=== PATIENT | male | born 1935 | race Caucasian/White ===

== ENCOUNTER → 2017-08-27 | Outpatient (CLI) | payer MEDICARE, BC ==
[~2017-08-27] MED LIST: ASPIR 8181 M1 PO; ASPIR-TRIN325 M1 PO; CELEBREX200 MG PO; ENDOCET 5-3251 EACH PO; Ecotrin PO; FEOSOL325 MG PO; HUMALOG100 UNIT/2 SC; LANTUS 3 M100 UNITS/ SC; LIPITOR10 MG PO; LIPITOR5 MG PO; Lipitor PO; NOVOLOG PE100 UNITS/ SC; SENOKOT S,PE1 TABLET PO; SINEMET CR 25-1 EACH PO; Vicodin,Norco 5/325 PO
== END | disposition home or self-care (01) ==
LOC: CDC 11:51
DX: Z01.810 Encounter for preprocedural cardiovascular examination (principal); N40.1 Benign prostatic hyperplasia with lower urinary tract symptoms; N13.8 Other obstructive and reflux uropathy
CPT/HCPCS: 93000

== ENCOUNTER 2018-01-26 20:57 | Observation (INO) | payer OTHER, BC ==
[~2018-01-26] VITALS: Ht 170.2 cm; Wt 64.5 kg
[~2018-01-26 20:57] MED LIST changes: -LIPITOR5 MG PO
[2018-01-26 21:59] LABS: HEMATOCRIT 37.2 % (38.0-50.0); HEMOGLOBIN 13.2 G/DL (12.5-16.6); MCH 32.7 PG (29.0-34.0); MCHC 35.5 G/DL (30.0-36.0); MCV 92.1 FL (86-99); PLATELET COUNT 182 K/uL (156-360); RBC DIS.WIDTH-CV 12.6 % (11.8-14.6); RBC DIS.WIDTH-SD 42.4 % (39-53); RED BLOOD COUNT 4.04 M/uL (4.00-5.50); WHITE BLOOD COUNT 4.1 K/uL (4.1-10.2)
[2018-01-26 22:08] LABS: CHLORIDE 101 mEq/L (99-109); POTASSIUM 4.7 mEq/L (3.7-5.4); SODIUM 136 mEq/L (136-147)
[2018-01-26 22:09] LABS: GLUCOSE 292 mg/dL (70-99)
[2018-01-26 22:13] LABS: GFR ESTIMATE (CALCULATED) > 59 mL/min/ (58.99-99999)
[2018-01-26 22:14] LABS: UREA NITROGEN (BUN) 20 mg/dL (9-23)
[2018-01-26 22:21] LABS: TROP-I INTERPRETATION NEGATIVE; TROPONIN-I < 0.01 ng/mL (0.0-0.30)
[2018-01-27 00:25] LABS: ALBUMIN 3.9 g/dL (3.2-4.8)
[2018-01-27 00:28] LABS: TOTAL PROTEIN 6.2 g/dL (6.4-8.3)
[2018-01-27 00:30] LABS: TOTAL BILIRUBIN 0.6 mg/dL (0.0-1.0)
[2018-01-27 00:31] LABS: ALKALINE PHOSPHATASE 75 IU/L (3-129)
[2018-01-27 00:33] LABS: AST (GOT) 21 IU/L (2-34)
[2018-01-27 00:34] LABS: ALT (GPT) 16 IU/L (3-49); CREATINE KINASE 145 IU/L (1-294); DIRECT BILIRUBIN 0.3 mg/dL (0.0-0.3)
[2018-01-27 00:45] VITALS: BP 133/72
[2018-01-27] MEDS ORDERED: SINEMET 25-1001 EACH PO (01:33)
[2018-01-27] MEDS ORDERED: NEURONTIN100 MG PO (01:35)
[2018-01-27] MEDS ORDERED: ONE DAILY MULT1 EACH PO (01:36)
[2018-01-27] MEDS ORDERED: MAGNESIUM400 M1 PO (01:37)
[2018-01-27] MEDS ORDERED: RABANO YOD50 MG/15 M PO (01:37)
[2018-01-27] MEDS ORDERED: TOUJEO SOL300 UNIT/1 SC (01:38)
[2018-01-27 04:20] VITALS: BP 120/95
[2018-01-27 06:23] LABS: TROP-I INTERPRETATION NEGATIVE; TROPONIN-I < 0.01 ng/mL (0.0-0.30)
[2018-01-27 06:36] LABS: CHLORIDE 105 MEQ/L (99-109); CREATININE 0.8 MG/DL (0.6-1.3); GFR ESTIMATE (CALCULATED) > 59 mL/min/ (58.99-99999); GLUCOSE 200 mg/dL (70-99); SODIUM 142 MEQ/L (136-147); UREA NITROGEN (BUN) 14 mg/dL (9-23)
[2018-01-27 08:32] VITALS: BP 145/73
[2018-01-27 11:03] LABS: TROP-I INTERPRETATION NEGATIVE; TROPONIN-I < 0.01 ng/mL (0.0-0.30)
[2018-01-27 11:28] VITALS: BP 101/59
== END 2018-01-27 14:00 | disposition home or self-care (01) ==
LOC: EME 20:57 → EDOF 23:44 → ENRESERV 23:49 → 4SOUTH 01-27 00:28
PROVIDERS: Emergency Medicine; Hospitalist
DX: R07.89 Other chest pain (principal); R25.2 Cramp and spasm; M79.1 Myalgia; R00.1 Bradycardia, unspecified; E11.65 Type 2 diabetes mellitus with hyperglycemia; G20 Parkinson's disease; E11.42 Type 2 diabetes mellitus with diabetic polyneuropathy; E78.5 Hyperlipidemia, unspecified; R53.1 Weakness; N40.0 Benign prostatic hyperplasia without lower urinary tract symptoms; M19.90 Unspecified osteoarthritis, unspecified site; I10 Essential (primary) hypertension; Z79.82 Long term (current) use of aspirin; Z79.4 Long term (current) use of insulin; Z87.891 Personal history of nicotine dependence; Z82.0 Family history of epilepsy and other diseases of the nervous system; Z80.0 Family history of malignant neoplasm of digestive organs
CPT/HCPCS: 71046; 80048; 80076; 82550; 82550 91; 82948; 83880; 84443; 84484; 85027; 93005; 99281; 99285; G0378; J1644; J1815; J7030